=== PATIENT | female | born 1990 | race Two or more races ===

== ENCOUNTER → 2022-09-16 08:00 | Outpatient (CLI) | payer OTHER ==
[~2022-09-16] VITALS: Ht 165.1 cm; Wt 99.8 kg
[~2022-09-16 08:00] MED LIST: ANUCORT-HC25 MG RECTAL; BENADR PO; CLARITIN10 M1 PO; PRENATAL 19 TA1 EACH PO
== END | disposition home or self-care (01) ==
LOC: LAB 08:00 → OB/GYN 09-18 07:45 → EDSTATUS 09-18 07:45 → OB/GYN 09-18 10:30
PROVIDERS: ATTEND Obstetrics & Gynecology Gynecologic Oncology
DX: Z01.818 Encounter for other preprocedural examination (principal); D06.7 Carcinoma in situ of other parts of cervix; D64.9 Anemia, unspecified; Z20.822 Contact with and (suspected) exposure to COVID-19; N39.0 Urinary tract infection, site not specified; R79.81 Abnormal blood-gas level

== ENCOUNTER 2022-11-03 15:42 | Inpatient (IN) | payer OTHER ==
[~2022-11-03] VITALS: Ht 165.1 cm; Wt 99.8 kg
[2022-11-04] MEDS ORDERED: ALLEGRA ALLERG180 MG PO (11:57)
== END 2022-11-07 14:04 | disposition home or self-care (01) | DRG 741 ==
LOC: O/R 11-06 06:13 → OB/GYN 11-06 10:15
PROVIDERS: ADMIT Obstetrics & Gynecology Gynecologic Oncology; ATTEND Obstetrics & Gynecology Gynecologic Oncology
PROC: 0UT74ZZ Resection of Bilateral Fallopian Tubes, Percutaneous Endoscopic Approach (ICD-10-PCS; 2022-11-06)
PROC: 07BC4ZZ Excision of Pelvis Lymphatic, Percutaneous Endoscopic Approach (ICD-10-PCS; 2022-11-06)
PROC: 0UT94ZZ Resection of Uterus, Percutaneous Endoscopic Approach (ICD-10-PCS; principal; 2022-11-06 12:30)
DX: D06.0 Carcinoma in situ of endocervix (principal); Z20.822 Contact with and (suspected) exposure to COVID-19

== ENCOUNTER 2022-11-21 17:40 | Emergency (ER) | payer OTHER ==
[~2022-11-21] VITALS: Ht 165.1 cm; Wt 89.8 kg
[~2022-11-21 17:40] MED LIST changes: +ALLEGRA ALLERG180 MG PO
== END 2022-11-21 20:15 | disposition home or self-care (01) ==
LOC: ER 17:40
DX: L03.114 Cellulitis of left upper limb (principal); Z91.040 Latex allergy status; Z91.041 Radiographic dye allergy status; M25.532 Pain in left wrist